=== PATIENT | female | born 2000 | race Caucasian/White ===

== ENCOUNTER 2018-03-25 12:59 | Emergency (ER) | payer BC ==
[~2018-03-25] VITALS: Ht 175.3 cm; Wt 87.7 kg
[2018-03-25 13:09] VITALS: Ht 175.3 cm; Wt 87.7 kg
--- NOTE | 2018-03-25 13:52 | DIAGNOSTIC IMAGING REPORT ---
R FOOT MIN 3 VIEWS ROUTINE HISTORY: 17 years-old Female RIGHT, METATARSAL PAIN acute pain and swelling of the right forefoot without acute reported trauma COMPARISON: None available TECHNIQUE: 3 views of the right foot FINDINGS: Prominent navicular tuberosity. No acute fracture, dislocation, significant degenerative changes, coalition or evidence of stress injury. Moderate forefoot soft tissue swelling, most pronounced dorsally. No opaque foreign body. IMPRESSION: 1. Moderate soft tissue swelling about the forefoot without acute fracture. 2. Prominent navicular tuberosity. The above report was generated using voice recognition software. It may contain grammatical, syntax or spelling errors. Electronically signed by: Sathish Dillon M.D. 03/25/2018 1:51 PM Dictated Date/Time: 03/25/2018 1:48 PM
--- NOTE | 2018-03-25 15:00 | EMERGENCY ROOM VISIT NOTE ---
ED Visit Note First contact with patient: 13:25 CHIEF COMPLAINT: Right foot pain 1 week HISTORY OF PRESENT INJURY: Patient is a 17-year-old female who presents the emergency department accompanied by a friend for evaluation of right foot pain times 1 week. Patient states that her foot pain started after she was walking extensively on campus over the last week. She had expected bilateral leg and feet soreness after the first couple of days, but her left foot improved, and her right foot has been getting worse. She has applied heat and taking ibuprofen. She has tried to rest and elevate the foot. The pain has been waking her up at night. It is notably in the dorsum of her foot, she motions to the distal metatarsal region. It is worse with weightbearing. She rates her discomfort a 7/10. She denies any trauma to the foot. No prior history of injuries to this foot or ankle. REVIEW OF SYSTEMS: Review of systems as per HPI. All other systems reviewed were negative. At least 6 systems reviewed. PMH: Electronic medical records are reviewed and summarized as above/below. See Problem List. SOCIAL HISTORY: [employer] from [place] who lives locally with roommates. Non- smoker. Denies alcohol use. PHYSICAL EXAM: Vital Signs: Reviewed Nurse's notes. GENERAL: Pleasant 17-year- old female who is awake and alert and in no acute distress. MUSCULOSKELETAL: Examination of the right foot note both dorsal and plantar soft tissue swelling , over distal metatarsal region. Ankle is nontender to palpation. Skin is intact without abrasions or ecchymosis. No erythema or increased warmth or induration. She has pain on palpation of the dorsal and plantar aspect of the foot over the metatarsal heads, primarily first through fourth. Fifth metatarsal shaft is nontender. Lisfranc joint is negative. Midfoot inversion and eversion causes discomfort. Pain with dorsiflexion and plantarflexion as well. Right lower extremity is neurovascularly intact. EMERGENCY DEPARTMENT COURSE: X-rays of the right foot were obtained and negative for acute fracture, soft tissue was noted. The patient was wrapped with an Dusty wrap, she was placed in a fracture boot. She states that she cannot negotiate using crutches. Supportive care measures were discussed. Differential diagnoses included sprain, strain, fracture, dislocation, contusion , insufficiency fracture, among others. Gout and cellulitis were felt to be much less likely. She was referred to [facility] or orthopedics for further care and management if her symptoms are not improving. Medication reconciliation: I attest that I have personally reviewed the patient' s current medication list. Blood pressure screening : Patient was found to have normal blood pressure on screening and does not require follow-up. R FOOT MIN 3 VIEWS ROUTINE HISTORY: 17 years-old Female RIGHT, METATARSAL PAIN acute pain and swelling of the right forefoot without acute reported trauma COMPARISON: None available TECHNIQUE: 3 views of the right foot FINDINGS: Prominent navicular tuberosity. No acute fracture, dislocation, significant degenerative changes, coalition or evidence of stress injury. Moderate forefoot soft tissue swelling, most pronounced dorsally. No opaque foreign body. IMPRESSION: 1. Moderate soft tissue swelling about the forefoot without acute fracture. 2. Prominent navicular tuberosity. Problem List Medical Problems: (1) Stomach problems Status: Chronic Current/Historical Medications No Active Prescriptions or Reported Meds Allergies Coded Allergies: No Known Allergies (Unverified , 03/25/18) Vital Signs Date Time Temp Pulse Resp B/P (MAP) Pulse Ox O2 Delivery O2 Flow Rate FiO2 03/25/18 15:32 37.2 109 16 132/88 97 03/25/18 13:09 37.2 109 16 148/96 97 Room Air Departure Information Impression Primary Impression: Right foot pain Prescriptions No Active Prescriptions or Reported Meds Referrals No Doctor, Assigned (PCP) Russell Mccloud MD Patient Instructions [facility] Additional Instructions Ibuprofen(Motrin, Advil) may be used for fever or pain. Use 600mg every six hours as needed. Take with food. Avoid using more than 2400mg in a 24 hour period. Do not use 2400mg per day for more than three consecutive days without physician direction. Prolonged inappropriate use can lead to stomach upset or ulcers. This medication can be taken if you need to drive, work, or perform activities which may be dangerous when taking narcotic pain medication. (AND/OR) Acetaminophen(Tylenol) may be used for fever or pain. Use 1000mg every six hours as needed. Avoid using more than 3000mg in a 24 hour period. This medication can be taken if you need to drive, work, or perform activities which may be dangerous when taking narcotic pain medication. Ice compresses for 20 minutes at a time four times daily for 2-3 days. Use the walking boot as instructed. Rest and elevate your injury. Continue current medications. Return to the ER immediately for any numbness, tingling, severe pain, extreme swelling in the extremity or as needed. Call [facility] tomorrow to arrange follow up for your injury.
[2018-03-25 15:32] VITALS: BP 132/88; PULSE 109; TEMP 37.2; O2SAT 97
== END 2018-03-25 15:33 | disposition home or self-care (01) ==
LOC: C.EDB 13:02 → C.EDD 15:33
DX: M79.671 Pain in right foot (principal); X50.1XXA Overexertion from prolonged static or awkward postures, initial encounter; Y92.89 Other specified places as the place of occurrence of the external cause